=== PATIENT | male | born 1955 | race Caucasian/White ===

== ENCOUNTER 2019-08-13 00:06 | Inpatient (IN) | payer MEDICARE ==
[~2019-08-13] VITALS: Ht 175.3 cm; Wt 80.9 kg
[2019-08-13] VITALS (42 sets, daily range): BP systolic 89–178; BP diastolic 51–92; BMI 27.7
--- NOTE | ~2019-08-13 | HEMODYNAMI ---
PATIENT:ANTHONY SHEPHERD MEDICAL RECORD: [id number] : 53 [id number] ADMISSION DATE: 08/13/19 Generatedon:08/13/201911:31 Patient name: ANTHONY SHEPHERD Patient #: [id number] SSN: [id number] : 1955 Date of study: 08/13/2019 Page: Of Hemodynamic Procedure Report Patient Data Patient Demographics Procedure consent was obtained First Name: ANTHONY Gender: Male Last Name: JOAO : 1955 Middle Initial: H Age: 64 year(s) Patient #: [id number] Race: SSN: [id number] Additional ID: [id number] Contact details [address]: [address] [place] [address] State: [place] City: [place] Zip code: [address] Past Medical History Allergies: No known allergies Admission Admission Data Admission Date: 08/13/2019 Admission Time: 2:45 Arrival Date: 08/13/2019 Arrival Time: 0:00 Admit Source: Other Insurance Payor: Medicare Room #: D.CV04 [facility] #: [id number] Height (in.): 68.9 BSA: 1.95 (m2) Height (cm.): 175 BMI: 25.8 (kg/m2) Weight (lbs.): 174.17 Weight (kg.): 79 Medications upon Admission Medications Dosage Times Administered Last Remarks per Delivery Day Date and Time Clopidogrel 08/13/2019 0:00 Aspirin (any) Lab Results Lab Result Date: 08/13/2019 Lab Result Time: 0:00 Biochemistry Name Units Result Min Max BUN mg/dl 14 --(--*-)-- 7 18 Creatinine mg/dl 1 --(--*-)-- 0.6 1.3 Troponin l ng/ml 0.379 --(----)-* 0 0.06 CBC Name Units Result Min Max Hematocrit % 39.4 -*(----)-- 42 54 Hemoglobin g/dl 13.4 -*(----)-- 13.5 17.5 Procedure Procedure Types Cath Procedure Diagnostic Procedure [facility] w/Coronaries Sedation Charges Moderate Sedation up to 15 minutes Procedure Description Procedure Date Procedure Date: 08/13/2019 Procedure Start Time: 11:10 Procedure End Time: 11:23 Procedure Staff Name Function Feliz Fonseca MD Performing Physician Memo Sher RN Nurse Kae Carlton RT Scrub Regina Zapien RT Monitor Procedure Data Cath Procedure Fluoroscopy Diagnostic fluoroscopy Total fluoroscopy Time: 1.7 time: 1.7 min min Diagnostic fluoroscopy Total fluoroscopy dose: 343 dose: 343 mGy mGy Estimated blood loss: 5 ml Diagnostic catheters Device Type Used For End Catheter Placement DIAGNOSTIC JL 4.0 5Fr Left Coronary catheter ([id number]) Angiography DIAGNOSTIC Pigtail 5Fr LV Angiography catheter ([id number]) Procedure Complications No complications Procedure Medications Medication Administration Route Dosage Oxygen etCO2 Nasal cannula 2 l/min Heparin Flush Bag added to field 2 bags (1000units/500ml NS) 0.9% NaCl I.V. 100 ml/hr Versed I.V. 1 mg Fentanyl I.V. 25 mcg Versed I.V. 1 mg Ancef (1Gm/50ml NS) I.V.P.B 1 g Hemodynamics Rest BSA: 1.95 (m2) HGB: 13.4 (g/dl) O2 Consumption: Estimated: 223.47 (ml/min) O2 Co nsumption indexed: Estimated:114.6 (ml/min/m) Heart Rate: 65 (bpm) Pressure Samples Time Site Value (mmHg) Purpose Heart Use Rate(bpm) 11:17 LV 122/-8,11 Snapshot 65 Gradients Valve Time Site Site Mean SEP/DFP Peak To Heart Use 1 2 (mmHg) (sec/min) Peak Rate (mmHg) (bpm) Aortic 11:18 LV AO 67 Snapshots Pre Cath Intra NCS Post Cath Vital Signs Time Heart Resp SPO2 etCO2 NIBP (mmHg) Rhythm Pain Sedation Rate (ipm) (%) (mmHg) Status Level (bpm) 11:01:09 104 11 97 0 121/70(102) NSR 0 (11) 10(A) , No pain 11:05:23 72 18 97 28.4 127/64(102) NSR 0 (11) 10(A) , No pain 11:09:35 72 14 95 30.7 125/80(92) NSR 0 (11) 10(A) , No pain 11:13:49 64 10 97 34.4 122/70(107) NSR 0 (11) 10(A) , No pain 11:18:05 68 14 95 30.7 103/62(79) NSR 0 (11) 10(A) , No pain 11:22:11 78 14 95 33.7 110/73(91) NSR 0 (11) 10(A) , No pain 11:26:22 65 11 97 38.9 122/65(92) NSR 0 (11) 10(A) , No pain Medications Time Medication Route Dose Verified Delivered Reason Notes Effe ctiveness by by 11:00:18 Oxygen etCO2 2 Norred Buffie used for Nasal l/min Raymundo Sher RN procedure cannula 11:00:30 Heparin Flush added 2 Norred Margyred used for Bag to bags Raymundo Fonseca MD procedure (1000units/500ml field NS) 11:00:42 0.9% NaCl I.V. 100 Feliz Wuie Per ml/hr Raymundo Sher RN physician 11:05:14 Versed I.V. 1 mg Feliz Hampton for Raymundo Sher RN sedation 11:14:07 Fentanyl I.V. 25 Feliz Hampton for back mcg Raymundo Sher RN pain 11:23:52 Versed I.V. 1 mg Feliz Hampton for Raymundo Sher RN sedation 11:27:56 Ancef (1Gm/50ml I.V.P.B 1 g Feliz Hampton Per NS) Raymundo Sher RN physician Procedure Log Time Note 10:28:30 Memo Sher RN sent for patient. Start room use. 10:28:51 Informed consent obtained and on chart 10:29:13 Patient Height : 68.9 inches 10:29:13 Patient Weight : 174.17 lbs 10:29:27 Diagnostic Cath Status : Urgent 10:29:48 Arrival Date: 08/13/2019 12:00:00 AM 10:29:57 Admit Source: Other 10:30:01 Procedure Status Urgent Heart Cath (IP). 10:30:04 Time tracking: Call back (After hours or weekends) 10:30:08 Plan of Care:Hemodynamics will remain stable., Cardiac rhythm will remain stable., Comfort level will be maintained., Respiratory function will remain adequate., Patient/ family verbilizes understanding of procedure., Procedure tolerated without complication., Recovers from procedure without complications.. 10:30:16 H&P Date Dictated: 08/13/2019 Within 30 days and on chart.. 10:30:17 Pre-procedure instructions explained to patient. 10:30:18 Pre-op teaching completed and patient verbalized understanding. 10:30:20 Family unavailable. 10:30:22 Patient NPO since Midnight. 10:30:33 Patient allergic to No known allergies 10:30:37 Alarms reviewed by R. N. 10:30:37 Sharps counted by scrub and verified by R.N. 10:30:45 Stress Test: no; N/A ? 10:30:48 Lab results completed and on chart. 10:31:08 ACC Patient presents with Stable Angina CCS Anginal Class 2--Slight limitation of ordinary activity. 10:50:16 Patient received from CVICU to CCL 1 Alert and oriented. Tansferred to table in Supine position. 10:50:17 Warm blankets applied, and rhianna hugger turned on for patient comfort. 10:50:18 Correct patient and procedure confirmed by team. 10:50:19 ECG and BP/O2 sat monitors applied to patient. 11:00:07 Vital chart was started 11:00:18 Oxygen 2 l/min etCO2 Nasal cannula was administered by Memo Sher RN; used for procedure; Verbal order read back and verified. 11:00:30 Heparin Flush Bag (1000units/500ml NS) 2 bags added to field was administered by Feliz Fonseca MD; used for procedure; Verbal order read back and verified. 11:00:42 0.9% NaCl 100 ml/hr I.V. was administered by Memo Sher RN; Per physician; Verbal order read back and verified. 11:03:49 Is the patient allergic to Iodine/contrast media? No. 11:03:50 Was the patient premedicated? No 11:03:53 Is patient on blood thinner?Yes 11:04:01 ACC The patient was administered the following blood thiners within the last 24 hours: ACCPlavix 11:04:03 Patient diabetic? No. 11:04:05 Previous problem with sedation/anesthesia? No ? 11:04:06 Snore? Yes 11:04:07 Sleep apnea? No 11:04:08 Deviated septum? No 11:04:09 Opens mouth fully? Yes 11:04:11 Sticks out tongue? Yes 11:04:15 Airway obstruction? No ? 11:04:25 Dentures? No ? 11:04:29 Pre procedure: right dorsailis pedis pulse 2+ Normal; easily identifiable; not easily obliterated 11:04:32 Pre procedure: left dorsailis pedis pulse 2+ Normal; easily identifiable; not easily obliterated 11:04:34 Patient pain scale 0/10 ?. 11:04:42 IV patent on arrival in right forearm with 0.9% NaCl at [facility]. 11:04:52 Right groin area was prepped with chlora-prep and draped in sterile fashion 11:04:53 Physician arrived 11:04:54 --------ALL STOP TIME OUT------ 11:04:56 Final Timeout: patient, procedure, and site verified with staff and physician. All members of the team are in agreement. 11:04:57 Right groin site verified by team. 11:05:00 Fire Safety Assessment: A--An alcohol-based skin anteseptic being used preoperatively., C--Open oxygen or nitrous oxide is being used., D--An ESU, laser, or fiber-optic light is being used. 11:05:03 Physical assessment completed. ASA score P 2 - A patient with mild systemic disease as per Feliz Fonseca MD. 11:05:14 Versed 1 mg I.V. was administered by Memo Sher RN; for sedation; Verbal order read back and verified. 11:05:14 2) 60-89 Mildly reduced kidney function, and other findings (as for stage 1) point to kidney disease. 11:09:29 Maximum allowable contrast dose (3.7 X eGFR X 0.75)244 ml. 11:09:33 Sedation plan: IV Moderate Sedation Medication:Versed, Fentanyl 11:09:40 Use device set CATH PACK 11::42 ACIST Syringe (00453) opened to sterile field. 11:09:42 ACIST Hand Control (03616) opened to sterile field. 11:09:43 ACIST Manifold (33211) opened to sterile field. 11:09:43 Medline Cath Pack ([id number]) opened to sterile field. 11:09:43 Bag Decanter () opened to sterile field. 11:09:44 EMERALD Guide Wire (016-580) opened to sterile field. 11:09:47 Procedure started. 11:09:47 Full Disclosure recording started 11:09:55 SHEATH 6FR [place] ([id number]) opened to sterile field. 11:10:05 Local anesthetic to right femoral artery with Lidocaine 2% by Feliz Fonseca MD.INITIAL ACCESS ONLY 11:12:34 sutures removed from 6 F [place] sheath; exchannged in sterile fashion for new 6F Pinnavle sheath 11:12:55 Called and spoke with sign other of ptLuz, update given 11:13:24 A DIAGNOSTIC JL 4.0 5Fr catheter ([id number]) was advanced over the wire and used for Left Coronary Angiography. 11:14:07 Fentanyl 25 mcg I.V. was administered by Memo Sher RN; for back pain; Verbal order read back and verified. 11:14:27 LCA angiography performed. 11:14:30 Injector settings: Ml/sec: 3, Volume: 6, 11:16:03 Catheter removed. 11:16:07 Zero performed for pressure channel P1 11:16:24 A DIAGNOSTIC Pigtail 5Fr catheter ([id number]) was advanced over the wire and used for LV Angiography. 11:17:40 LV hemodynamics recorded. 11:17:42 LV gram done using ROTH 11:17:45 Injector settings: Ml/sec: 12, Volume: 8, 11:18:24 EF : 50 % 11:18:27 Catheter removed. 11:19:57 sheath removed after ACT shows reading of 160 or less 11:20:18 Procedure ended.(Physican Out) 11:20:39 Fluoroscopy time 01.70 minutes. 11:20:43 Flurop Dose total: 343 11:20:43 Fluoroscopy dose: 343 mGy 11:20:50 Dose Area Product 84498 mGy/cm. 11:20:55 Contrast amount:Isovue 300 33.2ml. 11:20:57 Maximum allowable dose exceeded? No. 11:20:58 Sharps counted by scrub and verified by FloresBarryN. 11:21:54 Post Procedure Pulses reassessed and unchanged 11:22:01 Post procedure rhythm: unchanged. 11:22:04 Estimated blood loss: 5 ml 11:22:06 Post procedure instruction explained to patient.Patient verbalizes understanding. 11:22:06 Patient needs reinforcement of post procedure teaching. 11:22:27 Procedure type changed to Cath procedure, Diagnostic procedure, LHC, C w/Coronaries, Sedation Charges, Moderate Sedation up to 15 minutes 11:22:28 Procedure and supply charges have been captured, reviewed, submitted and are correct. 11:22:32 Procedure Complication : No complications 11:22:39 [facility] Findings: MVD- MD will discuss options w/ pt 11:22:41 Operative report dictated upon procedure completion. 11:22:41 See physician's report for complete and final results. 11:22:44 Report given to Med II. 11:22:46 Patient transfered to [facility] II with Stretcher. 11:23:03 Procedure ended. 11:23:03 Full Disclosure recording stopped 11:23:07 End room use (Document Last) 11:23:52 Versed 1 mg I.V. was administered by Memo Sher RN; for sedation; Verbal order read back and verified. 11:24:26 ACT drawn and resulted at 167 seconds. (normal therapeutic range 180-240 seconds). 11:24:37 Insertion/operative site no bleeding no hematoma. 11:27:56 Ancef (1Gm/50ml NS) 1 g I.V.P.B was administered by Memo Sher RN; Per physician; Verbal order read back and verified. 11:31:27 Vital chart was stopped Device Usage Item Name Manufacture Quantity Catalog Hospital Part Current Minimal L ot# / Number Charge Number Stock Stock Serial# Code ACIST Acist 1 79039 624394 498131 744183 20 Syringe Medical (44102) Systems Inc ACIST Hand Acist 1 58655 764668 140053 705199 5 Control Medical (47027) Systems Inc ACIST Acist 1 81921 415947 335890 132766 5 Manifold Medical (65580) Systems Inc Medline Medline 1 [id number] 586338 71724 904091 5 Cath Pack ([id number]) Bag Microtek 1 429082 31817 480884 5 Decanter Medical Inc. (2002S) EMERALD Cardinal 1 502-455 690710 401147 349379 5 Guide Wire Health (502455) SHEATH 6FR Terumo 1 [id number] 871076 349969 416731 40 [place] (TZO488) DIAGNOSTIC Cardinal 1 [id number] 031973 982364 950409 10 JL 4.0 5Fr Health catheter (806894P) DIAGNOSTIC Cardinal 1 [id number] 946953 187098 466180 5 Pigtail 5Fr Health catheter ([id number]) Signature Audit Winston Stage Time Signature Unsigned Intra-Procedure 08/13/2019 Regina Zapien 11:29:38 AM RT(R) Intra-Procedure 08/13/2019 Memo Sher RN 11:29:56 AM Intra-Procedure 08/13/2019 Feliz Fonseca MD 11:31:25 AM [id number] [place] [address]
--- NOTE | ~2019-08-13 | HEMODYNAMI ---
PATIENT:ANTHONY SHEPHERD MEDICAL RECORD: [id number] : 53 [facility] ADMISS[facility] DATE: 08/13/19 Generatedon:08/13/20193:01 Patient name: ANTHONY SHEPHERD Patient #: [id number] SSN: D OB: 1955 Date of study: 08/13/2019 Page: Of Hemodynamic Procedure Report Patient Data Patient Demographics Procedure consent was obtained First Name: ANTHONY Gender: Male Last Name: JOAO : 1955 Middle Initial: H Age: 64 year(s) Patient #: [id number] Race: Additional ID: [id number] Contact details Address: [address] [place] [address] State: [place] City: [place] Zip code: [address] Past Medical History Allergies: No known allergies Admission Admission Data Admission Date: 08/13/2019 Admission Time: 2:45 Admit Source: Emergency Insurance Payor: Medicare department [facility] #: [id number] Room #: [facility] Height (in.): 68.9 BSA: 1.95 (m2) Height (cm.): 175 BMI: 25.8 (kg/m2) Weight (lbs.): 174.17 Weight (kg.): 79 Medications upon Admission Medications Dosage Times Administered Last Remarks per Delivery Day Date and Time Clopidogrel 08/13/2019 0:00 Aspirin (any) Lab Results Lab Result Date: 08/13/2019 Lab Result Time: 0:00 Biochemistry Name Units Result Min Max BUN mg/dl 14 --(--*-)-- 7 18 Creatinine mg/dl 1 --(--*-)-- 0.6 1.3 Troponin l ng/ml 0.379 --(----)-* 0 0.06 CBC Name Units Result Min Max Hematocrit % 39.4 -*(----)-- 42 54 Hemoglobin g/dl 13.4 -*(----)-- 13.5 17.5 Procedure Procedure Types Cath Procedure Diagnostic Procedure C Coronaries w/Grafts Aortic Root Angiography Sedation Charges Moderate Sedation up to 45 minutes PCI Procedure AMI/SVG/MANAGER SKILLED PTCA or Stent AMI-BMS/MATILDE Initial Procedure Description Procedure Date Procedure Date: 08/13/2019 Procedure Start Time: 1:24 Procedure End Time: 2:58 Procedure Staff Name Function Feliz Fonseca MD Performing Physician Felipe Isabel RT Monitor Kae Carlton RT Scrub Memo Sher RN Nurse Procedure Data Cath Procedure Fluoroscopy Diagnostic fluoroscopy Total fluoroscopy Time: time: 20.1 min 20.1 min Diagnostic fluoroscopy Total fluoroscopy dose: dose: 2233 mGy 2233 mGy Contrast Material Contrast Material Type Amount (ml) Isovue 370 152 Entry Location Entry Primary Successful Side Size Upsize Upsize Entry Closure Succes sful Closure Location (Fr) 1 (Fr) 2 (Fr) Remarks Device Remarks Femoral Right 6 Fr Sheath artery Short sutured in place Estimated blood loss: 10 ml Diagnostic catheters Device Type Used For End Catheter Placement MULTIPACK 3DRC 5Fr Procedure catheter MULTIPACK JL 4.0 5Fr Procedure catheter MULTIPACK Pigtail 5 Fr Procedure catheter MULTIPACK 3DRC 5Fr Procedure catheter Procedure Complications No complications Procedure Medications Medication Administration Route Dosage Oxygen etCO2 Nasal cannula 2 l/min Lidocaine 2% added to field 20 Heparin Flush Bag added to field 2 bags (1000units/500ml NS) 0.9% NaCl I.V. 100 ml/hr Versed I.V. 1 mg Heparin Drip 1000 units/hr (56219hqrag/250 D5W) Amiodarone Loading I.V. drip 150 mg Dose (150mg/100ml D5W) Heparin Bolus I.V. 2000 units Heparin Bolus I.V. 1000 units Nitroglycerin IC/IA I.C. 150 mcg Heparin Bolus I.V. 2000 units Morphine I.V. 2 mg Heparin Drip 1200 units/hr (29504nzcjx/250 D5W) Hemodynamics Rest BSA: 1.95 (m2) HGB: 13.4 (g/dl) O2 Consumption: Estimated: 224.34 (ml/min) O2 Co nsumption indexed: Estimated:115.05 (ml/min/m) Heart Rate: 66 (bpm) Snapshots Pre Cath Intra NCS Post Cath Vital Signs Time Heart Resp SPO2 etCO2 NIBP (mmHg) Rhythm Pain Status Sedation Rate (ipm) (%) (mmHg) Level (bpm) 1:22:31 71 10 97 27.6 164/95(138) NSR 0 (11) , No 10(A) pain 1:26:53 77 11 98 32.8 169/100(148) NSR 0 (11) , No 10(A) pain 1:31:19 103 10 98 35.9 168/101(145) NSR 0 (11) , No 10(A) pain 1:35:44 80 17 98 15.7 148/79(112) NSR 0 (11) , No 10(A) pain 1:40:43 161 10 96 18.7 Measuring NSR 0 (11) , No 10(A) pain 1:43:41 78 15 96 29.1 199/103(161) NSR 0 (11) , No 10(A) pain 1:48:05 76 16 92 29.9 159/88(129) NSR 0 (11) , No 10(A) pain 1:52:29 68 18 97 31.4 137/79(115) NSR 0 (11) , No 10(A) pain 1:56:46 68 13 94 30.7 142/82(122) NSR 0 (11) , No 10(A) pain 2:01:02 70 13 95 32.9 149/89(133) NSR 0 (11) , No 10(A) pain 2:05:22 69 15 98 32.9 151/86(125) NSR 0 (11) , No 10(A) pain 2:09:40 69 11 95 33.6 133/77(112) NSR 0 (11) , No 10(A) pain 2:13:54 74 13 94 32.2 148/87(120) NSR 0 (11) , No 10(A) pain 2:18:14 75 18 98 33.7 154/87(132) NSR 0 (11) , No 10(A) pain 2:22:38 69 11 98 38.1 153/80(120) NSR 0 (11) , No 10(A) pain 2:26:58 86 15 98 27.6 130/83(109) NSR 0 (11) , No 10(A) pain 2:31:14 56 15 97 17.2 129/71(103) NSR 8 (11) , 10(A) Utterly horrible 2:35:28 67 11 98 25.4 142/85(101) NSR 8 (11) , 10(A) Utterly horrible 2:39:50 80 12 97 25.4 137/78(93) NSR 5 (11) , 10(A) Very distressing 2:44:06 84 13 97 28.4 139/86(110) NSR 5 (11) , 10(A) Very distressing 2:48:20 81 115 98 25.4 156/98(140) NSR 5 (11) , 10(A) Very distressing 2:52:42 103 12 98 25.4 158/87(132) NSR 5 (11) , 10(A) Very distressing 2:57:01 65 9 98 30.7 161/88(127) NSR 5 (11) , 10(A) Very distressing Medications Time Medication Route Dose Verified Delivered Reason Not es Effectiveness by by 1:27:00 Oxygen etCO2 2 l/min Feliz Buffjoyce used for Nasal Raymundo Sher tack puller machine cannula 1:27:08 Lidocaine 2% added 20ml Feliz Calero for local to vial Raymundo Fonseca MD anesthetic field 1:27:14 Heparin Flush added 2 bags Feliz Calero used for Bag to Raymundo Fonseca MD procedure (1000units/500ml field NS) 1:27:22 0.9% NaCl I.V. 100 Margyred Buffie Per physician ml/hr Raymundo Sher RN 1:27:29 Versed I.V. 1 mg Feliz Buffie for sedation Raymundo Sher RN 1:27:48 Heparin Drip I.V. 1000 Norred Buffie Per physician (37568olmxu/250 drip- units/hr Raymundo Sher RN D5W) stopped 1:43:03 Amiodarone I.V. 150 mg Norred Buffie Per physician Loading Dose drip Raymundo Sher RN (150mg/100ml D5W) 1:50:12 Heparin Bolus I.V. 2000 Norred Buffie for elvis ified units Raymundo Sher RN anticoagulation with dr calero 1:52:57 Heparin Bolus I.V. 1000 Norred Buffie for elvis ified units Raymundo Sher RN anticoagulation with dr calero 2:10:07 Nitroglycerin I.C. 150 mcg Feliz Calero for IC/IA Raymundo Fonseca MD vasodilation 2:31:38 Heparin Bolus I.V. 2000 Feliz Calero for elvis ified units Raymundo Fonseca MD anticoagulation with dr calero 2:34:09 Morphine I.V. 2 mg Feliz Hampton for chest pain Raymundo Sher RN 2:35:57 Heparin Drip I.V. 1200 Feliz Hampton Per physician elvis ified (60214mkyhd/250 drip- units/hr Raymundo Sher RN and D5W) stopped double checked with dr calero via smart pump. Procedure Log Time Note 1:00:11 Memo Sher RN sent for patient. Start room use. 1:09:14 Informed consent obtained and on chart 1:11:19 Admit Source: Emergency department 1:11:25 Insurance Payor : Medicare 1:11:36 Patient Weight : 174.17 lbs 1:11:38 Patient Height : 68.9 inches 1:12:35 Lab Result : Hemoglobin 13.4 g/dl 1:12:35 Lab Result : Hematocrit 39.4 % 1:12:42 ACC Patient presents with STEMI CCS Anginal Class 3--Marked limitation of physical activity, angina occurs with ordinary activity.. 1:12:45 Procedure Status Emergent Heart Cath (AMI). 1:13:16 Time tracking: Call back (After hours or weekends) 1:13:19 Plan of Care:Hemodynamics will remain stable., Cardiac rhythm will remain stable., Comfort level will be maintained., Respiratory function will remain adequate., Patient/ family verbilizes understanding of procedure., Procedure tolerated without complication., Recovers from procedure without complications.. 1:13:22 Patient received from Pre/Post Procedure Room to CCL 1 Alert and oriented. Tansferred to table in Supine position. 1:13:24 Warm blankets applied, and rhianna hugger turned on for patient comfort. 1:13:24 Correct patient and procedure confirmed by team. 1:13:25 ECG and BP/O2 sat monitors applied to patient. 1:13:31 H&P Date Dictated: 08/13/2019 Within 30 days and on chart.. 1:20:13 Vital chart was started 1:20:14 Baseline sample Acquired. 1:20:20 Rhythm: sinus rhythm , w/ ST elevation 1:20:24 Full Disclosure recording started 1:20:34 Pre-procedure instructions explained to patient. 1:20:34 Pre-op teaching completed and patient verbalized understanding. 1:20:37 Family unavailable. 1:20:40 Patient NPO since Dinner. 1:20:48 Patient allergic to No known allergies 1:20:50 Is the patient allergic to Iodine/contrast media? No. 1:21:02 Is patient on blood thinner?Yes 1:21:05 ACC The patient was administered the following blood thiners within the last 24 hours: ACCAspirin, ACCPlavix 1:21:08 Patient diabetic? No. 1:21:21 Previous problem with sedation/anesthesia? No ? 1:21:22 Snore? Yes 1:21:23 Sleep apnea? No 1:21:24 Deviated septum? No 1:21:24 Opens mouth fully? Yes 1:21:25 Sticks out tongue? Yes 1:21:26 Airway obstruction? No ? 1:21:28 Dentures? No ? 1:21:30 Pre procedure: right dorsailis pedis pulse 2+ Normal; easily identifiable; not easily obliterated 1:21:33 Patient pain scale 0/10 ?. 1:21:37 IV patent on arrival in right forearm with 0.9% NaCl at [facility]. 1:21:39 Lab results completed and on chart. 1:21:42 Right groin area was prepped with chlora-prep and draped in sterile fashion 1:21:43 Alarms reviewed by R. N. 1:21:44 Sharps counted by scrub and verified by R.N. 1:21:47 Use device set Femoral Dx 1:21:48 ACIST Syringe (39508) opened to sterile field. 1:21:48 Bag Decanter (2002S) opened to sterile field. 1:21:49 ACIST Hand Control (97651) opened to sterile field. 1:21:49 ACIST Manifold (34008) opened to sterile field. 1:21:50 Tegaderm 4 x 4 (1626W) opened to sterile field. 1:21:54 SHEATH 5FR Brookesmith (FMP964) opened to sterile field. 1:21:54 EMERALD Guide Wire (518-898) opened to sterile field. 1:21:56 DIAGNOSTIC Multipack 5Fr catheter set (PK1312) opened to sterile field. 1:22:10 Physician arrived 1::10 --------ALL STOP TIME OUT------ 1::10 Final Timeout: patient, procedure, and site verified with staff and physician. All members of the team are in agreement. 1:22:11 Right groin site verified by team. 1::14 Fire Safety Assessment: A--An alcohol-based skin anteseptic being used preoperatively., C--Open oxygen or nitrous oxide is being used., D--An ESU, laser, or fiber-optic light is being used. 1:22:17 Physical assessment completed. ASA score P 3 - A patient with severe systemic disease as per Feliz Fonseca MD. 1:22:19 1) 90+ Normal kidney functon but urine findings or structural abnormalities or genetic trait point to kidney disease. 1:22:22 Maximum allowable contrast dose (3.7 X eGFR X 0.75)250 ml. 1:24:48 Procedure started. 1:24:51 Local anesthetic to right femoral artery with Lidocaine 2% by Feliz Fonseca MD.INITIAL ACCESS ONLY 1:24:52 Access obtained with 4Fr micropunture. 1:24:57 A 6 Fr Short sheath was inserted into the Right Femoral artery 1:25:58 Zero performed for pressure channel P1 1:27:00 Oxygen 2 l/min etCO2 Nasal cannula was administered by Memo Sher RN; used for procedure; Verbal order read back and verified. 1:27:05 Zero performed for pressure channel P1 1:27:08 Lidocaine 2% 20ml vial added to field was administered by Feliz Fonseca MD; for local anesthetic; Verbal order read back and verified. 1:27:14 Heparin Flush Bag (1000units/500ml NS) 2 bags added to field was administered by Feliz Fonseca MD; used for procedure; Verbal order read back and verified. 1:27:18 SHEATH 6FR Brookesmith (EWR584) opened to sterile field. 1:27:22 0.9% NaCl 100 ml/hr I.V. was administered by Memo Sher RN; Per physician; Verbal order read back and verified. 1:27:29 Versed 1 mg I.V. was administered by Memo Sher RN; for sedation; Verbal order read back and verified. 1:27:48 Heparin Drip (16826rwlky/250 D5W) 1000 units/hr I.V. drip- stopped was administered by Memo Sher RN; Per physician; Verbal order read back and verified. 1:27:55 MICROPUNCTURE 4FR Cook (B69854) opened to sterile field. 1:27:56 INFLATOR Merit TouchotelixCompak (KG3659) opened to sterile field. 1:28:04 COPILOT Valve Control (1190255) opened to sterile field. 1:28:05 BMW 190cm Thorofare 2 J wire (1930338D) opened to sterile field. 1:28:06 Medline Cath Pack ([id number]) opened to sterile field. 1:28:10 A MULTIPACK 3DRC 5Fr catheter was advanced over the wire and used for Procedure. 1:28:29 Diagnostic Cath Status : Emergency 1:28:31 PCI Cath Status : Emergency 1::58 Lab Result : BUN 14 mg/dl 1::58 Lab Result : Creatinine 1 mg/dl 1::58 Lab Result : Troponin l 0.379 ng/ml 1:30:04 SVG to Diag angiography performed. 1:30:06 RCA angiography performed. 1:33:01 LESLIE to LAD angiography performed. 1:35:24 Called and spoke with sign. other of pt, Javone and update given. 1:35:43 Catheter exchanged over wire. 1:35:48 A MULTIPACK JL 4.0 5Fr catheter was advanced over the wire and used for Procedure. 1:38:15 LCA angiography performed. 1:38:17 Catheter exchanged over wire. 1:38:24 A MULTIPACK Pigtail 5 Fr catheter was advanced over the wire and used for Procedure. 1:38:42 Quick Combo opened to sterile field. 1:38:55 Quick combo pads placed on patients chest and back. 1:39:33 Shock delivered. 1:40:50 Defibrillator synced and charged to 360 Joules. 1:40:55 Patient cardioverted to sinus tachycardia. 1:43:03 Amiodarone Loading Dose (150mg/100ml D5W) 150 mg I.V. drip was administered by Memo Sher RN; Per physician; Verbal order read back and verified. 1:43:32 Aortic Root visualized 1:44:57 Catheter exchanged over wire. 1:45:49 A MULTIPACK 3DRC 5Fr catheter was advanced over the wire and used for Procedure. 1:46:59 SVG to Circ angiography performed. 1:49:19 GUIDE 6FR XBLAD 3.5 catheter ([id number]) opened to sterile field. 1:49:24 Catheter exchanged over wire. 1:49:35 6 Fr xblad 3.5 guide catheter was inserted over the wire 1:49:43 Pre PCI Site: [place] pCirc has 100% stenosis. 1:49:48 ACC Pre-intervention JOE Flow is 0. 1:50:12 Heparin Bolus 2000 units I.V. was administered by Memo Sher RN; for anticoagulation; verified with dr calero Verbal order read back and verified. 1:50:30 BMW wire advanced. 1:52:57 Heparin Bolus 1000 units I.V. was administered by Memo Sher RN; for anticoagulation; verified with dr calero Verbal order read back and verified. 1:53:10 ACT drawn and resulted at 261 seconds. (normal therapeutic range 180-240 seconds). 1:53:46 Wire advanced across lesion. 1:55:16 Inflate balloon Inflation number: 1 A EUPHORA 2.0 x 20 Balloon ([id number]) was prepped and advanced across the Prox CX , then inflated to 8 BON for 0:10 (min:sec) . 1:55:46 Inflation number: 2 The EUPHORA 2.0 x 20 Balloon ([id number]) was reinflated across the Prox CX , to 8 BON for 0:10 (min:sec) . 1:56:03 Inflation number: 3 The EUPHORA 2.0 x 20 Balloon ([id number]) was reinflated across the Prox CX , to 8 BON for 0:10 (min:sec) . 1:57:05 Balloon removed over the wire. 2:00:48 The LORI RX 2.25 x 30 stent ([id number]) was advanced then removed because of failure to cross lesion 2:03:40 Inflate balloon Inflation number: 4 A EUPHORA 2.5 x 20 Balloon ([id number]) was prepped and advanced across the Prox CX , then inflated to 8 BON for 0:10 (min:sec) . 2:04:08 Inflation number: 5 The EUPHORA 2.5 x 20 Balloon ([id number]) was reinflated across the Prox CX , to 10 BON for 0:10 (min:sec) . 2:04:43 Inflation number: 6 The EUPHORA 2.5 x 20 Balloon ([id number]) was reinflated across the Prox CX , to 16 BON for 0:10 (min:sec) . 2:05:57 Balloon removed over the wire. 2:08:11 Place stent Inflation Number: 7 A LORI RX 2.25 x 30 stent ([id number]) was prepped and advanced across the Prox CX 100. The stent was deployed at 12 BON for 0:10 (min:sec) 0. 2:08:33 Inflation number: 8 The stent balloon was then re-inflated across the Prox CX 0 to 12 BON for 0:10 (min:sec) . 2:10:07 Nitroglycerin IC/IA 150 mcg I.C. was administered by Feliz Fonseca MD; for vasodilation; Verbal order read back and verified. 2:11:20 Stent catheter was removed intact over wire. 2:13:27 Inflate balloon Inflation number: 1 A EUPHORA 2.0 x 20 Balloon ([id number]) was prepped and advanced across the Mid CX , then inflated to 10 BON for 0:10 (min:sec) . 2:15:31 Balloon removed over the wire. 2:16:40 ACC Post-intervention JOE Flow is 3. 2:17:31 The LORI RX 2.5 x 12 stent ([id number]) was advanced then removed because of failure to cross lesion 2:20:57 Inflate balloon Inflation number: 9 A NC EUPHORA 2.5 x 12 balloon ([id number]) was prepped and advanced across the Prox CX , then inflated to 16 BON for 0:10 (min:sec) . 2:21:23 Inflation number: 10 The NC EUPHORA 2.5 x 12 balloon ([id number]) was reinflated across the Prox CX , to 16 BON for 0:10 (min:sec) . 2:23:37 ACT drawn and resulted at 321 seconds. (normal therapeutic range 180-240 seconds). 2:24:50 Place stent Inflation Number: 11 A LORI RX 2.5 x 12 stent ([id number]) was prepped and advanced across the Prox CX . The stent was deployed at 17 BON for 0:10 (min:sec) . 2:29:39 Stent catheter was removed intact over wire. 2::56 Wire removed. 2::57 Guide catheter removed. 2:31:04 Sheath removed intact; hemostasis achieved with Sheath sutured in place to the Right Femoral artery. 2:31:06 Procedure ended.(Physican Out) 2:31:38 Heparin Bolus 2000 units I.V. was administered by Feliz Fonseca MD; for anticoagulation; verified with dr calero Verbal order read back and verified. 2:34:09 Morphine 2 mg I.V. was administered by Memo Sher RN; for chest pain; Verbal order read back and verified. 2:35:57 Heparin Drip (97996mwdvq/250 D5W) 1200 units/hr I.V. drip- stopped was administered by Memo Sher RN; Per physician; verified and double checked with dr calero via smart pump. Verbal order read back and verified. 2:54:09 Fluoroscopy time 20.10 minutes. 2:54:13 Flurop Dose total: 2233 2:54:13 Fluoroscopy dose: 2233 mGy 2:54:24 Dose Area Product 576793 mGy/cm. 2:54:30 Contrast amount:Isovue 370 152ml. 2:54:31 Maximum allowable dose exceeded? No. 2:54:33 Sharps counted by scrub and verified by R.N. 2:54:39 Insertion/operative site no bleeding no hematoma. 2:54:42 Post-op/insertion site Right Femoral artery dressed using a 4 x 4 and Tegaderm. 2:54:48 Post right femoral artery:stable, soft, clean and dry 2:54:51 Post Procedure Pulses reassessed and unchanged 2:54:58 Post-procedure physical assessment completed. ASA score P 4 - A patient with severe systemic disease that is a constant threat to life as per Feliz Fonseca MD. 2:55:12 Post procedure rhythm: sinus rhythm 2:55:21 Estimated blood loss: 10 ml 2:55:23 Post procedure instruction explained to patient.Patient verbalizes understanding. 2:55:25 Patient needs reinforcement of post procedure teaching. 2:56:37 Procedure type changed to Cath procedure, Diagnostic procedure, LHC, Coronaries w/Grafts, Aortic Root Angiography, Sedation Charges, Moderate Sedation up to 45 minutes, PCI procedure, AMI/SVG/MANAGER SKILLED PTCA or Stent, AMI-BMS/MATILDE Initial 2:57:48 Procedure and supply charges have been captured, reviewed, submitted and are correct. 2:57:50 Procedure Complication : No complications 2:58:04 Operative report dictated upon procedure completion. 2:58:05 See physician's report for complete and final results. 2:58:09 Report given to CVICU. 2:58:11 Patient transfered to CVICU with Stretcher. 2:58:16 Procedure ended. 2:58:16 Full Disclosure recording stopped 2:58:23 End room use (Document Last) 3:00:45 Vital chart was stopped Intervention Summary Intervention Notes Time ActionType Lesion and Equipment Used Action# Pressure Duration Attributes 1:55:16 Inflate Prox CX EUPHORA 2.0 x 1 8 00:10 balloon 20 Balloon ([id number]) 1:55:46 Reinflate Prox CX EUPHORA 2.0 x 2 8 00:10 balloon 20 Balloon ([id number]) 1:56:03 Reinflate Prox CX EUPHORA 2.0 x 3 8 00:10 balloon 20 Balloon ([id number]) 2:00:48 Discard LORI RX 2.25 x Stent 30 stent ([id number]) 2:03:40 Inflate Prox CX EUPHORA 2.5 x 4 8 00:10 balloon 20 Balloon ([id number]) 2:04:08 Reinflate Prox CX EUPHORA 2.5 x 5 10 00:10 balloon 20 Balloon ([id number]) 2:04:43 Reinflate Prox CX EUPHORA 2.5 x 6 16 00:10 balloon 20 Balloon ([id number]) 2:08:11 Place stent Prox CX LORI RX 2.25 x 7 12 00:10 30 stent ([id number]) 2:08:33 Reinflate Prox CX LORI RX 2.25 x 8 12 00:10 stent 30 stent balloon ([id number]) 2:13:27 Inflate Mid CX EUPHORA 2.0 x 1 10 00:10 balloon 20 Balloon ([id number]) 2:17:31 Discard LORI RX 2.5 x Stent 12 stent ([id number]) 2:20:57 Inflate Prox CX NC EUPHORA 2.5 9 16 00:10 balloon x 12 balloon ([id number]) 2:21:23 Reinflate Prox CX NC EUPHORA 2.5 10 16 00:10 balloon x 12 balloon ([id number]) 2:24:50 Place stent Prox CX LORI RX 2.5 x 11 17 00:10 12 stent ([id number]) Device Usage Item Name Manufacture Quantity Catalog Hospital Part [facility] Lot# / Number Charge Number Stock Stock Serial# Code ACIST Syringe Acist 1 68956 348280 854232 455106 20 (70563) Medical Systems Inc Bag Decanter Microtek 1 2001S 702450 04485 458698 5 (2001S) Medical Inc. ACIST Hand Acist 1 83926 256793 019335 978534 5 Control Medical (31188) Systems Inc ACIST Manifold Acist 1 43157 670465 150302 531081 5 (64475) Medical Systems Inc Tegaderm 4 x 4 3M 1 1626W 916797 687080 929297 5 (1626W) SHEATH 5FR Terumo 1 LYA118 917377 543461 357586 5 Brookesmith (CRC721) EMERALD Guide Cardinal 1 502-455 674975 733137 375115 5 Wire (502-455) Health DIAGNOSTIC Cardinal 1 FW2544 641132 36406 417978 30 Multipack 5Fr Health catheter set (RU5046) MICROPUNCTURE Cook Medical 1 E17662 739739 601055 469507 5 4FR Cook (W91491) INFLATOR Merit Merit 1 ZG9620 629112 174256 031580 15 [facility] (VF1011) COPILOT Valve Parra 1 9193639 375130 486812 320919 5 Control Vascular (2976462) BMW 190cm Parra 1 [id number] 884227 38964 759890 5 Thorofare 2 J Vascular wire (6178539F) Medline Cath Medline 1 [id number] 381126 85216 536721 5 Pack ([id number]) MULTIPACK 3DRC Cardinal 1 769374 5 5Fr catheter Health MULTIPACK JL Cardinal 1 337111 5 4.0 5Fr Health catheter MULTIPACK Cardinal 1 567003 5 Pigtail 5 Fr Health catheter Etacts 1 00048-577081 248125 327690 916778 5 GUIDE 6FR Cardinal 1 52896330 200418 207356 735948 10 XBLAD 3.5 Health catheter (09998107) EUPHORA 2.0 x Medtronic 2 [id number] 216784 887788 078468 5 [id number] 20 Balloon [id number] ([id number]) LORI RX 2.25 x Medtronic 1 [id number] 885002 1623990 679589 5 [id number] 30 stent ([id number]) EUPHORA 2.5 x Medtronic 1 [id number] 769126 641274 703004 5 [id number] 20 Balloon ([id number]) LORI RX 2.5 x Medtronic 1 [id number] 570515 2713175 764589 5 [id number] 12 stent ([id number]) NC EUPHORA 2.5 Medtronic 1 [id number] 225543 315421 572694 1 [id number] x 12 balloon ([id number]) SHEATH 6FR Terumo 1 SGR333 356663 277120 719389 40 Brookesmith (MVM379) Signature Audit [place] Stage Time Signature Unsigned Intra-Procedure 08/13/2019 Memo Sher RN; 3:00:41 AM Felipe Isabel RT(R); Feliz Fonseca MD [facility] [address] [facility] [address]
[2019-08-13] MEDS ORDERED: PLAVIX75 MG PO (00:17)
[2019-08-13] MEDS ORDERED: NITROQUICK0.4 MG SL (00:17)
[2019-08-13] MEDS ORDERED: UNK BP MED (00:18)
[2019-08-13] MEDS ORDERED: BAYER CHEWABLE81 MG PO (00:19)
[2019-08-13 00:32] LABS: HEMATOCRIT 39.4 % (42.0-54.0); HEMOGLOBIN 13.4 g/dL (13.5-17.5); MCH 32.8 pg (26.0-34.0); MCV 96.3 fL (80.0-100.0); MEAN PLATELET VOLUME 9.8 fL (7.4-10.4); RBC 4.09 10x6/uL (4.20-6.10); RDW 13.6 % (11.5-14.5); WBC 7.9 10x3/uL (4.8-10.8)
[2019-08-13 00:40] LABS: APTT 27.3 SECONDS (22.8-39.4); INR 0.88 (0.85-1.17); PROTIME 11.9 SECONDS (11.6-15.0)
--- NOTE | 2019-08-13 00:45 | NUR ---
IRON MELTER CONSENTS SIGNED AND WITNESSED AT THIS TIME.
--- NOTE | 2019-08-13 00:48 | NUR ---
DR TORRES AT PT BEDSIDE
[2019-08-13 01:00] LABS: BASOPHILS 0.6 % (0-2); EOSINOPHILS 6.8 % (0-7); HEMATOCRIT 39.5 % (42.0-54.0); HEMOGLOBIN 13.4 g/dL (13.5-17.5); IMMATURE GRANULOCYTES 0.1 % (0-5); LYMPHOCYTES 31.4 % (15-50); MCH 32.4 pg (26.0-34.0); MCHC 33.9 g/dL (31.0-37.0); MCV 95.4 fL (80.0-100.0); MEAN PLATELET VOLUME 9.8 fL (7.4-10.4); MONOCYTES 12.4 % (2-11); NEUTROPHILS 48.7 % (40-80); PLATELET COUNT 217 10x3/uL (130-400); RBC 4.14 10x6/uL (4.20-6.10); RDW 13.7 % (11.5-14.5); WBC 7.9 10x3/uL (4.8-10.8)
--- NOTE | 2019-08-13 01:10 | NUR ---
PT LEFT ED VIA STRETCHER AT THIS TIME WITH SHIPPING WEIGHER TEAM.
[2019-08-13 01:14] LABS: ALBUMIN 3.8 g/dL (3.4-5.0); ALKALINE PHOSPHATASE 79 U/L (30-120); ALT (SGPT) 24 U/L (10-68); BILIRUBIN - TOTAL 0.24 mg/dL (0.2-1.3); CALC OSMOLALITY 274 mosm/kg (275-300); CALCIUM 8.7 mg/dL (8.5-10.1); CARBON DIOXIDE 25.9 mmol/L (21.0-32.0); CHLORIDE - SERUM 103 mmol/L (98-107); GLUCOSE 102 mg/dL (74-106); MAGNESIUM - SERUM 1.9 mg/dL (1.8-2.4); POTASSIUM - SERUM 3.8 mmol/L (3.5-5.1); SODIUM 137 mmol/L (136-145); UREA NITROGEN 14 mg/dL (7-18); eGFR NON AFRICAN AMERICAN 80 mL/min (90-120)
[2019-08-13 01:15] LABS: TROPONIN-I 0.379 ng/mL (0.000-0.060)
--- NOTE | 2019-08-13 01:16 | NUR ---
CRITICAL LAB-TROPONIN 0.379 CALLED TO PLASTIC CNC MACHINE OPERATOR.
--- NOTE | 2019-08-13 03:15 | NUR ---
RECEIVED PATIENT TO ROOM CV5 FROM RESIDENTIAL CARPENTER ACCOMPANIED BY RESIDENTIAL CARPENTER RNS. PATIENT AWAKE, ALERT AND TALKATIVE. ORIENTED X 4. DENIES CHEST PAIN. MONITORS CONNECTED TO PATIENT WITH ALARMS SET. VSS. ASSESSMENT COMPLETED PER FLOW SHEET WITH NO ACUTE DISTRESS OBSERVED AT PRESENT. NORMAL SINUS RHYTHMN ON MONITOR. PATIENT ORIENTED TO ROOM/UNIT, CALL LIGHT IN REACH AND ABLE TO UTILIZE TO MAKE NEEDS KNOWN.
--- NOTE | 2019-08-13 05:00 | NUR ---
RESTING WITH EYES CLOSED, EASILY ROUSED AND ALERT. VSS. DENIES CHEST PAIN/DISCOMFORT. CALL LIGHT IN REACH
--- NOTE | 2019-08-13 07:15 | NUR ---
AWAKE AND ALERT. VERY TALKATIVE. DENIES ANY PAIN OR PRESSURE IN CHEST. RIGHT FEMEROL DRESSING INTACT GOPI WITH GOOD WAVE FORM. GREAT PEDAL PULSES. SKIN WARM AND DRY. IV RIGHT FOREARM WITHOUT REDENSS OR SWELLING INFUSING WITH HEAPRIN AT 1200 UNITS HOUR, NS AT 50 ML HOUR. HOB FLAT.
[2019-08-13 07:55] LABS: ALBUMIN 3.1 g/dL (3.4-5.0); ALKALINE PHOSPHATASE 67 U/L (30-120); ALT (SGPT) 25 U/L (10-68); BILIRUBIN - TOTAL 0.36 mg/dL (0.2-1.3); CALCIUM 8.2 mg/dL (8.5-10.1); CHLORIDE - SERUM 108 mmol/L (98-107); CREATININE - SERUM 0.9 mg/dL (0.6-1.3); GLUCOSE 96 mg/dL (74-106); POTASSIUM - SERUM 3.7 mmol/L (3.5-5.1); PROTEIN - SERUM 5.9 g/dL (6.4-8.2); SODIUM 142 mmol/L (136-145); eGFR NON AFRICAN AMERICAN 90 mL/min (90-120)
[2019-08-13 07:57] LABS: CALC OSMOLALITY 281 mosm/kg (275-300); UREA NITROGEN 10 mg/dL (7-18)
[2019-08-13 07:58] LABS: TROPONIN-I 3.117 ng/mL (0.000-0.060)
--- NOTE | 2019-08-13 08:00 | NUR ---
HEPARIN GTT OFF FOR ONE HOUR, DUE TO PTT 151.7. TO RESTART AT 9 AM AT 900 UNITS HOUR.
--- NOTE | 2019-08-13 08:13 | NUR ---
PHONE PROVIDE TO TALK WITH FAMILY. NO DISTRESS. ON ROOM AIR.
--- NOTE | 2019-08-13 08:34 | NUR ---
TALKING ON PHONE WITH FAMILY. PO MEDS TAKEN WITHOUT DIFFICULTY. REFUSED LIPTOR STATES HE DOES NOT TAKE CHOLESTROL MEDS.
--- NOTE | 2019-08-13 09:03 | NUR ---
HEPARIN GTT RESTARTED AT 900 UNITS HOUR
--- NOTE | 2019-08-13 09:49 | NUR ---
DR. ESQUIVEL AND DR. TORRES HERE.
--- NOTE | 2019-08-13 10:34 | NUR ---
benadryl 50 iv given pre op for heart cath
--- NOTE | 2019-08-13 10:48 | NUR ---
TO INSPECTOR FIREARMS PER BED
--- NOTE | 2019-08-13 11:45 | NUR ---
RETURNED TO ROOM PER BED. AWAKES EASILY TO VERBAL STIMULI SKIN WARM AND DRY. RIGHT FEMORAL DRESSING DRY AND INTACT. BRUISING WHERE OLD SUTURES WHERE. NO SWELLING NOTED. PEDAL PULSES GREAT. IV RIGHT FOREARM INFUSING WITH NS AT KVO. HEPARIN TO REMAIN OFF. MONITOR SR. DENIES PAIN. DENIES SHORTNESS OF BREATH. DR. TORRES TALKED WITH GIRLFRIEND ON PHONE.
--- NOTE | 2019-08-13 12:15 | NUR ---
NO CHANGES RIGHT FEMORAL DRESSING. GOOD PEDAL PULSES. NAPPING AND DRINKING PO FLUIDS. DENIES PAIN
--- NOTE | 2019-08-13 13:00 | NUR ---
REGULAR DIET SERVED ATE 100%. DRINKING FLUIDS. RIGHT FEMORAL DRESSING DRY AND INTACT. NO SWELLING. NO CHANGE IN BRUISING. GOOD PEDAL PULSES. MONITOR SR. NO DISTRESS. DENIES PAIN.
--- NOTE | 2019-08-13 14:30 | NUR ---
NAPPING RESP DEEP AND REGULAR NO DISTRESS
--- NOTE | 2019-08-13 16:06 | NUR ---
RIGHT FEMORAL DRESSING DRY AND INTACT. NO SWELLING. NO CHANGE. PEDAL PULSES PALABLE. NAPPING DENIES PAIN.
--- NOTE | 2019-08-13 16:43 | NUR ---
RIGHT FEMORAL DRESSING DRY AND INTACT. DINNER TRAY SET UP SERVED. DENIES ANY CHEST PAIN. IV SALINE LOCKED
--- NOTE | 2019-08-13 17:53 | NUR ---
GOOD APPETITE. RIGHT FEMORAL DRESSING DRY AND INTACT, PEDAL PULSES PALABLE. TALKATIVE. PO FLUIDS TAKEN WELL. NO DISTRESS. DENIES PAIN
--- NOTE | 2019-08-13 19:56 | NUR ---
PATIENT IN ALERT AND ORENTED X4 ABLE TO VOICE ALL NEEDS AND WANT STO STAFF. CALL LIGHT, WATER , PHONE IN REACH. NO NEEDS AT THIS TIME NO S/S OF DISTRESS.
--- NOTE | 2019-08-13 21:58 | NUR ---
SUSANA IS ALERT AND ORENTED X 4. ABLE TO VOICE NEEDS AND WANTS TO STAFF. IV TO RIGHT FA IS INTACT. REMAINS ON ROOM AIR. MAKINGING AND RECEVING PHONE CALLS. WATER AND CALL LIGHT IN REACH. URINAL IN REACH AT BEDSIDE. URINE IS CLEAR YELLOW. PEDAL PULSES STRONG. NO NEEDS AT THIS TIME.
--- NOTE | 2019-08-13 23:50 | NUR ---
PATIENT RESTING WITH NO NEEDS AT THIS TIME T. V. MORNING CAREGIVER LIGHT IN REACH. STATED NO NEEDS NO S/S OF DISTRESS.
[2019-08-14] VITALS (9 sets, daily range): BP systolic 112–139; BP diastolic 59–68; Ht 175.3 cm; Wt 80.9 kg
--- NOTE | 2019-08-14 01:50 | NUR ---
SLEEPING NO S/S OF DISTRESS CHECKED OFTEN FOR NEEDS AND SAFETY. CALL LIGHT IN REACH.
--- NOTE | 2019-08-14 04:00 | NUR ---
RESTING IN BED NO S/S OF DISTRESS.CALL LIGHT IN REACH.
--- NOTE | 2019-08-14 05:52 | NUR ---
PATIENT ALERT AND ORENTED AWAKE WITH WEATHER CHANNEL ON T.V.GAVE TWO CUPS OF WATER. NO NEEDS AT THIS TIME.
[2019-08-14 05:58] LABS: BASOPHILS 0.3 % (0-2); EOSINOPHILS 4.5 % (0-7); HEMATOCRIT 36.6 % (42.0-54.0); HEMOGLOBIN 12.1 g/dL (13.5-17.5); IMMATURE GRANULOCYTES 0.1 % (0-5); LYMPHOCYTES 15.7 % (15-50); MCHC 33.1 g/dL (31.0-37.0); MCV 96.8 fL (80.0-100.0); MEAN PLATELET VOLUME 9.9 fL (7.4-10.4); MONOCYTES 7.8 % (2-11); NEUTROPHILS 71.6 % (40-80); PLATELET COUNT 201 10x3/uL (130-400); RBC 3.78 10x6/uL (4.20-6.10); WBC 9.7 10x3/uL (4.8-10.8)
[2019-08-14 06:24] LABS: CALC OSMOLALITY 271 mosm/kg (275-300); CALCIUM 8.3 mg/dL (8.5-10.1); CARBON DIOXIDE 24.7 mmol/L (21.0-32.0); CHLORIDE - SERUM 103 mmol/L (98-107); CREATININE - SERUM 0.8 mg/dL (0.6-1.3); GLUCOSE 95 mg/dL (74-106); POTASSIUM - SERUM 3.7 mmol/L (3.5-5.1); SODIUM 137 mmol/L (136-145); UREA NITROGEN 8 mg/dL (7-18); eGFR NON AFRICAN AMERICAN > 90 mL/min (90-120)
--- NOTE | 2019-08-14 07:00 | NUR ---
PT REPORT RECEIVED FROM CUSTOMER PROGRAM MANAGER NURSE. NO ACUTE SIGNS OF DISTRESS NOTED. PT RESTING IN BED COMFORTABLY. SHIFT ASSESSMENT COMPLETED. WILL CONTINUE TO MONITOR
--- NOTE | 2019-08-16 08:16 | DS ---
PATIENT:ANTHONY SHEPHERD :53 MEDICAL RECORD: [id number] DISCHARGE SUMMARY ADMISSION DATE: 08/13/19 DISCHARGE DATE: 08/14/19 PROBLEM LIST: Acute inferior myocardial infarction, atherosclerosis, coronary artery disease, status post bypass grafting, and dyslipidemia. BRIEF HISTORY AND HOSPITAL COURSE: Came in with acute inferior myocardial infarction, underwent primary PCI stenting with good results. EF preserved at this point. Discharged home with beta blockade, statin, Plavix, and aspirin. ACTIVITY: As tolerated, offered cardiac rehabilitation. DIET: 1800 calorie AHA diet. FOLLOWUP: Will be in the office in 2-3 weeks. TRANSINT:[id number] Voice Confirmation ID: [id number] DOCUMENT ID: [id number] CALEB SHIELDS MD at 0816 CC: [id number] DICTATION DATE: 08/14/19911 LUNCH COOK: 08/14/19 2336 DIS IN 08/14/19 [id number] [place] [address]
== END 2019-08-14 10:45 | disposition home or self-care (01) | DRG 247 ==
LOC: D.ER 00:06 → D.CVICU 02:45
PROVIDERS: Family Medicine; Internal Medicine Cardiovascular Disease; ADMIT Internal Medicine Nephrology; ATTEND Internal Medicine Nephrology
PROC: B2121ZZ Fluoroscopy of Single Coronary Artery Bypass Graft using Low Osmolar Contrast (ICD-10-PCS; 2019-08-13)
PROC: B2111ZZ Fluoroscopy of Multiple Coronary Arteries using Low Osmolar Contrast (ICD-10-PCS; 2019-08-13)
PROC: B2151ZZ Fluoroscopy of Left Heart using Low Osmolar Contrast (ICD-10-PCS; 2019-08-13)
PROC: B2111ZZ Fluoroscopy of Multiple Coronary Arteries using Low Osmolar Contrast (ICD-10-PCS; 2019-08-13)
PROC: B2151ZZ Fluoroscopy of Left Heart using Low Osmolar Contrast (ICD-10-PCS; 2019-08-13)
PROC: 4A023N7 Measurement of Cardiac Sampling and Pressure, Left Heart, Percutaneous Approach (ICD-10-PCS; 2019-08-13)
PROC: 027035Z Dilation of Coronary Artery, One Artery with Two Drug-eluting Intraluminal Devices, Percutaneous Approach (ICD-10-PCS; principal; 2019-08-13 01:00)
PROC: 4A023N7 Measurement of Cardiac Sampling and Pressure, Left Heart, Percutaneous Approach (ICD-10-PCS; 2019-08-13 01:00)
DX: I21.19 ST elevation (STEMI) myocardial infarction involving other coronary artery of inferior wall (principal); I25.10 Atherosclerotic heart disease of native coronary artery without angina pectoris; I10 Essential (primary) hypertension

== ENCOUNTER → 2019-11-24 14:30 | Outpatient (CLI) | payer MEDICARE ==
[2019-08-14 09:43] VITALS: BMI 26.3
[~2019-11-24 14:30] MED LIST: BAYER CHEWABLE81 MG PO; NITROQUICK0.4 MG SL; PLAVIX75 MG PO; UNK BP MED
== END | disposition home or self-care (01) ==
LOC: D.HCCECHO 14:30
PROVIDERS: ATTEND Internal Medicine Cardiovascular Disease
DX: I25.10 Atherosclerotic heart disease of native coronary artery without angina pectoris (principal)

== ENCOUNTER → 2019-12-12 19:11 | Outpatient (CLI) | payer MEDICARE ==
[2019-08-14 09:43] VITALS: BMI 26.3
[2019-12-12 21:47] LABS: CHOL - HDL RATIO 2.9 ratio (2.3-4.9); LDL-HDL RATIO 1.5 ratio (1.5-3.5)
== END | disposition home or self-care (01) ==
LOC: D.LABREF 19:11
PROVIDERS: ATTEND Internal Medicine Cardiovascular Disease
DX: E78.5 Hyperlipidemia, unspecified (principal)

== ENCOUNTER 2019-12-25 11:59 | Day surgery (SDC) | payer MEDICARE ==
[~2019-12-25] VITALS: Ht 175.3 cm; Wt 80.9 kg
--- NOTE | ~2019-12-25 | HEMODYNAMI ---
PATIENT:ANTHONY SHEPHERD MEDICAL RECORD: [id number] : 53 LOCATION:[facility] ADMISSION DATE: 12/25/19 Generatedon:12/25/201915:14 Patient name: ANTHONY SHEPHERD Patient #: [id number] SSN: [id number] : 1955 Date of study: 12/25/2019 Page: Of Hemodynamic Procedure Report Patient Data Patient Demographics Procedure consent was obtained First Name: ANTHONY Gender: Male Last Name: JOAO : 1955 Middle Initial: H Age: 64 year(s) Patient #: [id number] Race: SSN: [id number] Additional ID: [id number] Contact details [address]: [address] [place] [address] State: [place] City: [place] Zip code: [address] Past Medical History Allergies Allergen Reaction Date Comments Reported Other 12/25/2019 Aqbqhum-Obz-epg-reductase allergy inhibitors Admission Admission Data Admission Date: 12/25/2019 Admission Time: 11:59 Lab Results Lab Result Date: 12/25/2019 Lab Result Time: 12:40 Biochemistry Name Units Result Min Max BUN mg/dl 12 --(-*--)-- 7 18 Creatinine mg/dl 1.1 --(--*-)-- 0.6 1.3 CBC Name Units Result Min Max Hematocrit % 42.9 --(*---)-- 42 54 Hemoglobin g/dl 14.4 --(*---)-- 13.5 17.5 Procedure Procedure Types Cath Procedure Diagnostic Procedure LHC LHC w/Coronaries w/Grafts Aortic Root Angiography Sedation Charges Moderate Sedation up to 45 minutes Peripheral Cath Diagnostic Procedure Abd/Extremity Aortagram Procedure Description Procedure Date Procedure Date: 12/25/2019 Procedure Start Time: 14:35 Procedure End Time: 15:11 Procedure Staff Name Function Nura Forbes MD Performing Physician Felipe Isabel RT Monitor Regina Zapien RT Scrub Memo Sher RN Elderly Caregiver Procedure Data Cath Procedure Fluoroscopy Diagnostic fluoroscopy Total fluoroscopy Time: 6.7 time: 6.7 min min Diagnostic fluoroscopy Total fluoroscopy dose: dose: 1266 mGy 1266 mGy Contrast Material Contrast Material Type Amount (ml) Isovue 300 168 Entry Location Entry Primary Successful Side Size Upsize Upsize Entry Closure Succes sful Closure Location (Fr) 1 (Fr) 2 (Fr) Remarks Device Remarks Femoral Right 5 Fr Exoseal artery Estimated blood loss: 5 ml Diagnostic catheters Device Type Used For End Catheter Placement MULTIPACK JL 4.0 5Fr Procedure catheter MULTIPACK 3DRC 5Fr Procedure catheter DIAGNOSTIC AR MOD 5Fr Procedure Catheter ([id number]) DIAGNOSTIC IM 5Fr Procedure catheter ([id number]) MULTIPACK Pigtail 5 Fr Procedure catheter Procedure Complications No complications Procedure Medications Medication Administration Route Dosage Oxygen etCO2 Nasal cannula 2 l/min Lidocaine 2% added to field 20 Heparin Flush Bag added to field 2 bags (1000units/500ml NS) 0.9% NaCl I.V. 100 ml/hr Versed I.V. 1 mg Fentanyl I.V. 50 mcg Versed I.V. 1 mg Fentanyl I.V. 50 mcg Versed I.V. 1 mg Versed I.V. 1 mg Hemodynamics Rest HGB: 14.4 (g/dl) Heart Rate: 63 (bpm) Pressure Samples Time Site Value (mmHg) Purpose Heart Use Rate(bpm) 14:49 LV 124/8,24 Snapshot 59 Gradients Valve Time Site Site Mean SEP/DFP Peak To Heart Use 1 2 (mmHg) (sec/min) Peak Rate (mmHg) (bpm) Aortic 14:50 LV AO 64 Snapshots Pre Cath Intra NCS Post Cath Vital Signs Time Heart Resp SPO2 etCO2 NIBP (mmHg) Rhythm Pain Sedation Rate (ipm) (%) (mmHg) Status Level (bpm) 14:01:44 53 18 98 31.6 133/47(132) NSR 0 (11) 10(A) , No pain 14:06:43 50 21 98 30.1 Measuring NSR 0 (11) 10(A) , No pain 14:10:12 62 18 93 33.9 130/74(111) NSR 0 (11) 10(A) , No pain 14:14:28 62 19 97 19.5 148/80(119) NSR 0 (11) 10(A) , No pain 14:18:50 61 17 98 34.6 141/80(106) NSR 0 (11) 10(A) , No pain 14:23:08 60 16 98 36.1 142/77(106) NSR 0 (11) 10(A) , No pain 14:27:28 50 10 98 35.4 139/72(92) NSR 0 (11) 10(A) , No pain 14:31:48 49 15 98 35.4 143/69(110) NSR 0 (11) 10(A) , No pain 14:36:06 55 16 98 36.9 148/75(123) NSR 0 (11) 10(A) , No pain 14:40:24 50 10 98 39.8 140/81(119) NSR 0 (11) 9(A) , No pain 14:44:38 64 12 97 24.8 144/83(102) NSR 0 (11) 9(A) , No pain 14:48:58 66 10 98 35.3 130/70(96) NSR 0 (11) 9(A) , No pain 14:53:12 65 13 98 36.9 133/72(100) NSR 0 (11) 9(A) , No pain 14:57:26 68 13 98 35.4 141/78(119) NSR 0 (11) 9(A) , No pain 15:01:38 69 12 98 37.6 155/94(122) NSR 0 (11) 9(A) , No pain 15:05:58 68 12 98 36.1 147/80(125) NSR 0 (11) 10(A) , No pain 15:10:53 57 9 99 39.1 153/80(130) NSR 0 (11) 10(A) , No pain Medications Time Medication Route Dose Verified Delivered Reason Notes Eff ectiveness by by 14:00:17 Oxygen etCO2 2 Nura Buffie used for Nasal l/min Andrei Sher RN procedure cannula 14:01:42 Lidocaine 2% added 20ml Nura Nura for local to vial Andrei Forbes MD anesthetic field 14:02:01 Heparin Flush added 2 Nura Nura used for Bag to bags Andrei Forbes MD procedure (1000units/500ml field NS) 14:02:14 0.9% NaCl I.V. 100 Nura Buffie used for ml/hr Andrei Sher RN procedure 14:33:00 Fentanyl I.V. 50 Nura Buffie for mcg Andrei Sher RN sedation 14:33:54 Versed I.V. 1 mg Nura Buffie for Andrei Sher RN sedation 14:39:52 Versed I.V. 1 mg Nura Buffie for Andrei Sher RN sedation 14:39:56 Fentanyl I.V. 50 Nura Buffie for mcg Andrei Sher RN sedation 14:45:07 Versed I.V. 1 mg Nura Buffie for Andrei Sher RN sedation 14:55:12 Versed I.V. 1 mg Nura Buffie for Andrei Sher RN sedation Procedure Log Time Note 13:37:59 Informed consent obtained and on chart 13:39:24 Diagnostic Cath Status : Elective 13:45:09 Regina Zapien RT(R) sent for patient. Start room use. 13:52:07 Procedure Status Elective Heart Cath (OP). 13:52:13 Time tracking: Regular hours (M-F 7:00 - 5:00) 13:52:17 Plan of Care:Hemodynamics will remain stable., Cardiac rhythm will remain stable., Comfort level will be maintained., Respiratory function will remain adequate., Patient/ family verbilizes understanding of procedure., Procedure tolerated without complication., Recovers from procedure without complications.. 13:52:20 Patient received from Pre/Post Procedure Room to CCL 2 Alert and oriented. Tansferred to table in Supine position. 13:52:25 Warm blankets applied, and rhianna hugger turned on for patient comfort. 13:52:25 Correct patient and procedure confirmed by team. 13:52:25 ECG and BP/O2 sat monitors applied to patient. 13:59:46 Vital chart was started 13:59:49 Baseline sample Acquired. 13:59:52 Rhythm: sinus rhythm 13:59:53 Full Disclosure recording started 14:00:05 H&P Date Dictated: 12/15/2019 Within 30 days and on chart., H&P Addendum completed by physician on day of procedure. (MUST COMPLETE FOR ALL OUTPATIENTS). 14:00:07 Pre-procedure instructions explained to patient. 14:00:07 Pre-op teaching completed and patient verbalized understanding. 14:00:08 Family in waiting room. 14:00:10 Patient NPO since Midnight. 14:00:17 Oxygen 2 l/min etCO2 Nasal cannula was administered by Memo Sher RN; used for procedure; Verbal order read back and verified. 14:00:35 Patient allergic to Other vsfknxwGxleaao-Enw-oow-reductase inhibitors 14:00:37 Is the patient allergic to Iodine/contrast media? No. 14:00:38 Is patient on blood thinner?Yes 14:00:40 ACC The patient was administered the following blood thiners within the last 24 hours: ACCAspirin, ACCPlavix 14:00:46 Patient diabetic? No. 14:01:08 Previous problem with sedation/anesthesia? No ? 14:01:23 Snore? Yes 14:01:24 Sleep apnea? No 14:01:25 Deviated septum? No 14:01:26 Opens mouth fully? Yes 14:01:27 Sticks out tongue? Yes 14:01:28 Airway obstruction? No ? 14:01:31 Dentures? Yes in tight 14:01:34 Pre procedure: right dorsailis pedis pulse 2+ Normal; easily identifiable; not easily obliterated 14:01:37 Patient pain scale 0/10 ?. 14:01:42 Lidocaine 2% 20ml vial added to field was administered by Nura Forbes MD; for local anesthetic; Verbal order read back and verified. 14:01:55 IV patent on arrival in left forearm with 0.9% NaCl at [facility]. 14:02:01 Heparin Flush Bag (1000units/500ml NS) 2 bags added to field was administered by Nura Forbes MD; used for procedure; Verbal order read back and verified. 14:02:14 0.9% NaCl 100 ml/hr I.V. was administered by Memo Sher RN; used for procedure; Verbal order read back and verified. 14:07:12 Lab Result : BUN 12 mg/dl 14:07:12 Lab Result : Creatinine 1.1 mg/dl 14:07:12 Lab Result : Hemoglobin 14.4 g/dl 14:07:12 Lab Result : Hematocrit 42.9 % 14:07:15 Lab results completed and on chart. 14:08:12 SCAI report generator down. 14:08:58 Right groin area was prepped with chlora-prep and draped in sterile fashion 14:08:59 Alarms reviewed by R. N. 14:09:01 Sharps counted by scrub and verified by R.N. 14:09:03 Use device set Femoral Dx 14:09:04 ACIST Syringe (39824) opened to sterile field. 14:09:05 Bag Decanter (2002S) opened to sterile field. 14:09:05 Medline Cath Pack ([id number]) opened to sterile field. 14:09:06 ACIST Hand Control (09526) opened to sterile field. 14:09:07 ACIST Manifold (37191) opened to sterile field. 14:09:08 Tegaderm 4 x 4 (1626W) opened to sterile field. 14:09:09 EXOSEAL 5Fr (EX500) opened to sterile field. 14:09:09 DIAGNOSTIC Multipack 5Fr catheter set (DA2386) opened to sterile field. 14:09:11 EMERALD Guide Wire (887-619) opened to sterile field. 14:09:11 SHEATH 5FR [place] (VHW643) opened to sterile field. 14:09:52 ACC Patient presents with Stable Angina CCS Anginal Class 2--Slight limitation of ordinary activity. 14:09:57 ACCPatient has been prescribed/administered the following anti-anginal medication within the last 2 weeks: Beta Mg 14:17:57 Zero performed for pressure channel P1 14:32:33 Physician arrived 14:32:34 --------ALL STOP TIME OUT------ 14:32:34 Final Timeout: patient, procedure, and site verified with staff and physician. All members of the team are in agreement. 14:32:36 Right groin site verified by team. 14:32:39 Fire Safety Assessment: A--An alcohol-based skin anteseptic being used preoperatively., C--Open oxygen or nitrous oxide is being used., D--An ESU, laser, or fiber-optic light is being used. 14:32:41 Physical assessment completed. ASA score P 2 - A patient with mild systemic disease as per Nura Forbes MD. 14:32:47 2) 60-89 Mildly reduced kidney function, and other findings (as for stage 1) point to kidney disease. 14:33:00 Fentanyl 50 mcg I.V. was administered by Memo Sher RN; for sedation; Verbal order read back and verified. 14:33:26 Maximum allowable contrast dose (3.7 X eGFR X 0.75)71 ml. 14:33:29 Sedation plan: IV Moderate Sedation Medication:Versed, Fentanyl 14:33:54 Versed 1 mg I.V. was administered by Memo Sher RN; for sedation; Verbal order read back and verified. 14:34:25 Procedure started. 14:35:00 Local anesthetic to right femoral artery with Lidocaine 2% by Nura Forbes MD.INITIAL ACCESS ONLY 14:35:03 A 5 Fr sheath was inserted into the Right Femoral artery 14:36:24 A MULTIPACK JL 4.0 5Fr catheter was advanced over the wire and used for Procedure. 14:39:47 LCA angiography performed. 14:39:52 Versed 1 mg I.V. was administered by Memo Sher RN; for sedation; Verbal order read back and verified. 14:39:52 Catheter exchanged over wire. 14:39:56 Fentanyl 50 mcg I.V. was administered by Memo Sher RN; for sedation; Verbal order read back and verified. 14:39:58 A MULTIPACK 3DRC 5Fr catheter was advanced over the wire and used for Procedure. 14:40:09 RCA angiography performed. 14:41:43 Catheter exchanged over wire. 14:42:06 A DIAGNOSTIC AR MOD 5Fr Catheter ([id number]) was advanced over the wire and used for Procedure. 14:44:50 SVG to OM angiography performed. 14:44:53 SVG to Diag angiography performed. 14:45:07 Versed 1 mg I.V. was administered by Memo Sher RN; for sedation; Verbal order read back and verified. 14:45:45 Catheter exchanged over wire. 14:45:50 A DIAGNOSTIC IM 5Fr catheter ([id number]) was advanced over the wire and used for Procedure. 14:47:46 LESLIE to LAD angiography performed. 14:48:25 Catheter exchanged over wire. 14:48:29 A MULTIPACK Pigtail 5 Fr catheter was advanced over the wire and used for Procedure. 14:48:35 LV gram done using ROTH 14:48:37 Injector settings: Ml/sec: 10, Volume: 20, 14:48:38 LV hemodynamics recorded. 14:49:42 EF : 40 % 14:50:13 Aortic Root visualized 14:55:12 Versed 1 mg I.V. was administered by Memo Sher RN; for sedation; Verbal order read back and verified. 15:02:06 Abdominal Aortagram was performed. 15:06:15 Catheter removed. 15:06:28 Sheath removed intact; hemostasis achieved with Exoseal to the Right Femoral artery. 15:09:32 Procedure ended.(Physican Out) 15:09:45 Fluoroscopy time 06.70 minutes. 15:09:50 Fluoroscopy dose: 1266 mGy 15:09:50 Flurop Dose total: 1266 15:09:59 Dose Area Product 39600 mGy/cm. 15:10:03 Contrast amount:Isovue 300 168ml. 15:10:05 Maximum allowable dose exceeded? No. 15:10:06 Sharps counted by scrub and verified by R.N. 15:10:09 Insertion/operative site no bleeding no hematoma. 15:10:11 Post-op/insertion site Right Femoral artery dressed using a 4 x 4 and Tegaderm. 15:10:14 Post right femoral artery:stable, soft, clean and dry 15:10:15 Post Procedure Pulses reassessed and unchanged 15:10:19 Post-procedure physical assessment completed. ASA score P 2 - A patient with mild systemic disease as per Nura Forbes MD. 15:10:21 Post procedure rhythm: unchanged. 15:10:22 Estimated blood loss: 5 ml 15:10:23 Post procedure instruction explained to patient.Patient verbalizes understanding. 15:10:24 Patient needs reinforcement of post procedure teaching. 15:11:00 Procedure type changed to Cath procedure, Diagnostic procedure, LHC, C w/Coronaries w/Grafts, Aortic Root Angiography, Sedation Charges, Moderate Sedation up to 45 minutes, Peripheral Cath Diagnostic Procedure, Abd/Extremity, Aortagram 15:11:19 Procedure and supply charges have been captured, reviewed, submitted and are correct. 15:11:21 Procedure Complication : No complications 15:11:23 Vital chart was stopped 15:11:30 [facility] Findings: MVD- MD will discuss options w/ pt 15:11:31 Operative report dictated upon procedure completion. 15:11:33 See physician's report for complete and final results. 15:11:34 Report given to Pre/Post Procedure Room. 15:11:37 Patient transfered to Pre/Post Procedure Room with Stretcher. 15:11:43 Procedure ended. 15:11:43 Full Disclosure recording stopped 15:11:52 ACC-PCI Only Patient was given prescriptions, or instructed by Nura Forbes MD to start/continue the following medications upon discharge: Aspirin, Plavix 15:11:53 End room use (Document Last) 15:12:18 End room use (Document Last) 15:13:00 Regina Zapien RT(R) was relieved by Felipe Isabel RT(R) as monitoring person 15:13:00 End room use (Document Last) 15:14:33 Felipe Isabel RT(R) was relieved by Felipe Isabel RT(R) as monitoring person Device Usage Item Name Manufacture Quantity Catalog Hospital Part Current Minimal L ot# / Number Charge Number Stock Stock Serial# Code ACIST Acist 1 89143 033567 996854 957261 20 Syringe Medical (82828) Systems Inc Bag Microtek 1 743574 60508 576624 5 Decanter Medical Inc. () Medline Medline 1 [id number] 089652 93190 837558 5 Cath Pack ([id number]) ACIST Hand Acist 1 06583 287942 848750 210284 5 Control Medical (93744) Systems Inc ACIST Acist 1 59883 561011 182913 886846 5 Manifold Medical (01452) Systems Inc Tegaderm 4 3M 1 1626W 394712 656802 831757 5 x 4 (1626W) EXOSEAL 5Fr Cardinal 1 EX500 410055 373509 589922 10 (EX500) Health DIAGNOSTIC Cardinal 1 LP3875 962719 21490 848762 30 Multipack Health 5Fr catheter set (FT3902) EMERALD Cardinal 1 502-455 155131 982904 513666 5 Guide Wire Health (502-455) SHEATH 5FR Terumo 1 EVB313 322334 505563 815206 5 [place] (UWV032) MULTIPACK Cardinal 1 471891 5 JL 4.0 5Fr Health catheter MULTIPACK Cardinal 1 603025 5 3DRC 5Fr Health catheter DIAGNOSTIC Cardinal 1 [id number] 334685 192280 324392 15 AR MOD 5Fr Health Catheter (872049R) DIAGNOSTIC Cardinal 1 [id number] 723289 289079 939697 5 IM 5Fr Health catheter (508237M) MULTIPACK Cardinal 1 169081 5 Pigtail 5 Health Fr catheter Signature Audit [place] Stage Time Signature Unsigned Intra-Procedure 12/25/2019 Felipe Isabel 3:12:18 PM RT(R) Intra-Procedure 12/25/2019 Memo Sher RN 3:14:21 PM Intra-Procedure 12/25/2019 Nura Forbes MD 3:14:55 PM Signatures Performing Physician : Signature : Nura Forbes MD Date : Time : Monitor : Felipe Isabel RT Signature : Date : Time : [address] [address]
[2019-12-25] MEDS ORDERED: LOPRESSOR25 MG PO (12:18)
[2019-12-25] MEDS ORDERED: CELEXA10 MG PO (12:18)
[2019-12-25] MEDS ORDERED: PROTONIX20 MG PO (12:19)
[2019-12-25] MEDS ORDERED: VITAMIN D2000 UNI1 PO (12:20)
[2019-12-25 12:39] VITALS: BP 157/74; Ht 175.3 cm; Wt 80.9 kg
[2019-12-25 12:46] LABS: EOSINOPHILS 6.7 % (0-7); HEMATOCRIT 42.9 % (42.0-54.0); HEMOGLOBIN 14.4 g/dL (13.5-17.5); IMMATURE GRANULOCYTES 0.1 % (0-5); LYMPHOCYTES 22.2 % (15-50); MCH 32.8 pg (26.0-34.0); MCHC 33.6 g/dL (31.0-37.0); MCV 97.7 fL (80.0-100.0); MEAN PLATELET VOLUME 10.2 fL (7.4-10.4); MONOCYTES 10.7 % (2-11); NEUTROPHILS 59.3 % (40-80); PLATELET COUNT 220 10x3/uL (130-400); RBC 4.39 10x6/uL (4.20-6.10); WBC 7.1 10x3/uL (4.8-10.8)
[2019-12-25 12:58] LABS: ANION GAP 11.6 mmol/L (8-16); CALCIUM 9.2 mg/dL (8.5-10.1); CARBON DIOXIDE 25.3 mmol/L (21.0-32.0); CHOL - HDL RATIO 2.8 ratio (2.3-4.9); CREATININE - SERUM 1.1 mg/dL (0.6-1.3); LDL-HDL RATIO 1.4 ratio (1.5-3.5); POTASSIUM - SERUM 3.9 mmol/L (3.5-5.1)
--- NOTE | 2019-12-25 15:20 | NUR ---
PT REC'D TO ROOM 3 VIA STRETCHER FROM [employer] CONSULTANT. MONITORS ESTAB. SIG OTHER AT BS. SEE NEWBORN PHOTOGRAPHER, ALARMS ON AND C/L IN REACH.
--- NOTE | 2019-12-25 15:35 | NUR ---
DR. KING AT BS TO TALK WITH PT AND HIS SIG OTHER AT LENGTH RE: POC.
[2019-12-25] MEDS ORDERED: NITROQUICK0.4 MG SL (15:46)
--- NOTE | 2019-12-25 16:05 | NUR ---
R GROIN SITE SOFT, NO S/S BLEEDING OR HEMATOMA. PULSES PALP. VSS. PT DENIES PAIN OR NEEDS. ALARMS ON AND C/L IN REACH.
--- NOTE | 2019-12-25 16:20 | NUR ---
R GROIN SITE SOFT, NO S/S BLEEDING OR HEMATOMA. PULSES PALP. VSS. HOB GRADUALLY ELEVATED.
--- NOTE | 2019-12-25 16:45 | NUR ---
R GROIN SITE SOFT, C/D/I. SANDWICH TRAY AND WATER SERVED. VSS. ALARMS ON AND C/L IN REACH.
--- NOTE | 2019-12-25 17:15 | NUR ---
R GROIN SITE SOFT, NO S/S BLEEDING OR HEMATOMA. PULSES PALP. VSS.
--- NOTE | 2019-12-25 17:37 | NUR ---
R GROIN SITE SOFT, C/D/I. PIV D/C'D INTACT, DSG APPLIED. ALL D/C INSTRUCTIONS REVIEWED INCLUDING RESTRICTIONS, MEDS AND PT WILL BE CALLED RE F/U. BOTH VERBALIZE UNDERSTANDING. PT ALLOWED UP TO GET DRESSED AND GO TO BR INDEPENDENTLY.
--- NOTE | 2019-12-25 17:50 | NUR ---
PT D/C'D VIA WC TO PRIVATE VEHICLE WITH ALL PAPERWORK AND BELONGINGS.
== END 2019-12-25 17:50 | disposition home or self-care (01) ==
LOC: D.CATH 11:59
PROVIDERS: ATTEND Internal Medicine Cardiovascular Disease
DX: I25.110 Atherosclerotic heart disease of native coronary artery with unstable angina pectoris (principal); I10 Essential (primary) hypertension; E78.5 Hyperlipidemia, unspecified